=== PATIENT | female | born 1970 | race Caucasian/White ===

== ENCOUNTER → 2024-10-10 14:36 | Outpatient (REF) | payer OTHER, SELFPAY | LOC: HWRAD 14:36 | PROVIDERS: ATTENDING PHYSICIAN Student in an Organized Health Care Education/Training Program; FAMILY PHYSICIAN Nurse Practitioner Adult Health | DX: R10.2 Pelvic and perineal pain (principal) | CPT/HCPCS: 72192 ==

== ENCOUNTER → 2024-10-27 07:59 | Outpatient (REF) | payer OTHER, SELFPAY | LOC: PET 07:59 | PROVIDERS: ATTENDING PHYSICIAN Nurse Practitioner Adult Health | DX: C50.411 Malignant neoplasm of upper-outer quadrant of right female breast (principal); C50.412 Malignant neoplasm of upper-outer quadrant of left female breast | CPT/HCPCS: 78815; A9552 ==

== ENCOUNTER → 2024-12-01 14:27 | Outpatient (REF) | payer OTHER, SELFPAY | LOC: RAD 14:27 | PROVIDERS: ATTENDING PHYSICIAN Internal Medicine Hematology & Oncology; FAMILY PHYSICIAN Nurse Practitioner Adult Health | DX: C50.412 Malignant neoplasm of upper-outer quadrant of left female breast (principal); D50.0 Iron deficiency anemia secondary to blood loss (chronic); C79.51 Secondary malignant neoplasm of bone | CPT/HCPCS: 72194; Q9967 ==

== ENCOUNTER 2025-01-08 13:07 | Outpatient (RCR) | payer OTHER, SELFPAY | END 2025-01-08 23:59 | disposition home or self-care (01) | LOC: RPT 13:07 | PROVIDERS: ATTENDING PHYSICIAN Nurse Practitioner Adult Health | DX: S32.592D Other specified fracture of left pubis, subsequent encounter for fracture with routine healing (principal); R26.89 Other abnormalities of gait and mobility; Z73.6 Limitation of activities due to disability; Z85.3 Personal history of malignant neoplasm of breast | CPT/HCPCS: 97010; 97110; 97140; 97162; 97530 ==

== ENCOUNTER 2025-01-31 18:04 | Outpatient (RCR) | payer OTHER, SELFPAY | END 2025-01-31 23:59 | disposition home or self-care (01) | LOC: RPT 18:04 | PROVIDERS: ATTENDING PHYSICIAN Nurse Practitioner Adult Health | DX: S32.592D Other specified fracture of left pubis, subsequent encounter for fracture with routine healing (principal); R26.89 Other abnormalities of gait and mobility; Z73.6 Limitation of activities due to disability; Z85.3 Personal history of malignant neoplasm of breast | CPT/HCPCS: 97110; 97112; 97530 ==

== ENCOUNTER → 2025-08-15 14:00 | Outpatient (REF) | payer OTHER, SELFPAY | LOC: RAD 14:00 | PROVIDERS: ATTENDING PHYSICIAN Nurse Practitioner Adult Health | DX: M79.89 Other specified soft tissue disorders (principal); M79.671 Pain in right foot | CPT/HCPCS: 73630 ==